=== PATIENT | female | born 1935 | race Caucasian/White ===

== ENCOUNTER 2016-12-22 09:27 | Emergency (ER) | payer OTHER ==
[~2016-12-22] VITALS: Ht 172.7 cm; Wt 82.0 kg
[2016-12-22] MEDS ORDERED: SODIUM CHLORIDE FLUSH 10 ML SYR IV PRN (10:10)
[2016-12-22] MEDS ORDERED: SODIUM CHLORIDE FLUSH 3 ML SYR IV PRN (10:10)
[2016-12-22 10:12] LABS: BASOPHILS % (AUTO) 1 % (0-2); EOSINOPHILS # (AUTO) 0.1 10^3uL; EOSINOPHILS % (AUTO) 2 % (0-4); LYMPHOCYTES # (AUTO) 1.4 X10^3; MEAN CORPUSCULAR HEMOGLOBIN 28.7 PG (26.0-34.0); MEAN CORPUSCULAR HGB CONC 32.6 g/dL (31.0-37.0); MEAN CORPUSCULAR VOLUME 88 FL (80-100); MEAN PLATELET VOLUME 9.7 FL (6.0-9.5); MONOCYTES # (AUTO) 0.6 X10^3; MONOCYTES % (AUTO) 10 % (3-11); NEUTROPHILS # (AUTO) 4.2 X10^3; NEUTROPHILS % (AUTO) 67 % (51-67); PLATELET COUNT 186 10^3uL (150-450); WHITE BLOOD COUNT 6.31 10^3uL (4.0-11.0)
[2016-12-22 10:19] LABS: ALBUMIN 4.1 g/dL (3.4-5.0); ALKALINE PHOSPHATASE 78 U/L (38-126); ANION GAP 13.2 MEQ/L (3-15); BUN/CREATININE RATIO 20 (10-20); TOTAL PROTEIN 7.1 g/dL (6.4-8.5)
[2016-12-22 11:34] VITALS: BP 175/89
--- NOTE | 2016-12-22 12:09 | Diagnostic Imaging Report ---
INDICATION: Mild chest pain earlier in the day. TECHNIQUE: Single view chest 10:27 AM. CORRELATION STUDY: None FINDINGS: Heart size is mildly enlarged with a left ventricular configuration. Vasculature is within normal limits. The lungs demonstrate minimal areas of atelectasis and/or scarring at the lingula but otherwise are relatively clear. Asymmetry of the distal right clavicle, nonspecific, could be reflective of a prior injury. IMPRESSION: Negative for acute findings in the chest. Borderline heart size. Dictated by: Dictated on workstation # [id number]
--- NOTE | 2016-12-22 12:13 | Diagnostic Imaging Report ---
INDICATION: Pain.. TECHNIQUE: AP, lateral, bilateral oblique and odontoid views cervical spine.. CORRELATION STUDY: None FINDINGS: Diffuse bony demineralization is present. There is mild retrolisthesis of C2 on C3. There is trace anterolisthesis of C5 on C6, C4 on C5. There is also retrolisthesis of C6 on C7. Features favor likely degenerative change. Marked disc space narrowing most pronounced at C5-C6, C6-C7 and C7-T1 levels. Hypertrophic facet arthropathy diffusely. The odontoid is largely obscured. Sclerosis the lateral masses of C1 and C2. Neural foramina do demonstrate significant narrowing on the right at C3-C4 and to a lesser degree, at C3-C4 levels. Prevertebral soft tissues appear unremarkable. IMPRESSION: Rather advanced multilevel cervical spondylosis. No definitive evidence for acute bony abnormality. Bony demineralization is present. Dictated by: Dictated on workstation # [id number]
== END 2016-12-22 11:38 | disposition home or self-care (01) ==
LOC: ED 09:30
DX: R07.89 Other chest pain (principal); S16.1XXA Strain of muscle, fascia and tendon at neck level, initial encounter; W07.XXXA Fall from chair, initial encounter
CPT/HCPCS: 36415; 71010; 72050; 80053; 84484; 85025; 85610; 93005; 93010; 99284; 99285